=== PATIENT | male | born 2000 | race Hispanic/Latino ===

== ENCOUNTER 2025-01-21 12:29 | Emergency (ER) | payer OTHER ==
[~2025-01-21] VITALS: Ht 177.8 cm; Wt 87.1 kg
[2025-01-21 12:32] VITALS: TEMP 99.1
[2025-01-21] MEDS: LIDOCAINE 1% MDV 20 ML VIAL SC ONE (14:35)
[2025-01-21] MEDS ORDERED: BACI500O8 TOP (15:19)
[2025-01-21] MEDS: NEOSPORIN OINT 0.9 GM PKT TOP ONE (15:21)
[2025-01-21 15:24] VITALS: BP 143/80; O2SAT 100
== END 2025-01-21 15:26 | disposition home or self-care (01) ==
LOC: M ED 12:29
DX: S61.412A Laceration without foreign body of left hand, initial encounter (principal); Y92.9 Unspecified place or not applicable; Y93.9 Activity, unspecified; Y99.0 Civilian activity done for income or pay; W26.8XXA Contact with other sharp object(s), not elsewhere classified, initial encounter

== ENCOUNTER 2025-01-30 13:26 | Emergency (ER) | payer OTHER ==
[~2025-01-30] VITALS: Ht 177.8 cm; Wt 87.3 kg
[~2025-01-30 13:26] MED LIST: BACI500O8 TOP
[2025-01-30 15:48] VITALS: BP 124/85; TEMP 98.4; O2SAT 100
== END 2025-01-30 16:56 | disposition home or self-care (01) ==
LOC: M ED 13:26
DX: Z48.02 Encounter for removal of sutures (principal)